=== PATIENT | female | born 1985 | race Two or more races ===

== ENCOUNTER 2017-04-24 15:05 | Inpatient (IN) | payer OTHER ==
--- NOTE | 2017-04-24 16:42 | HP ---
Past Medical History - Admission Chief Complaint: Rupture of membrane History of Present Illness: 32 yo , @ 37.6 weeks gestation, EDC 05/09/17, presents c/o spontaneous rupture of membrane. Upon admission there was evidence of gross pooling. History Source: Patient Limitations to Obtaining History: No Limitations - Past Medical History ...: 2 ...Para: 0 - Past Surgical History Past Surgical History: Yes: None Hx Myomectomy: No Hx Transabdominal Cerclage: No - Alcohol/Substance Use Hx Alcohol Use: No History of Substance Use: reports: None - Social History Usual Living Arrangement: Yes: With Spouse History of Recent Travel: No Home Medications - Allergies Allergies/Adverse Reactions: Allergies Allergy/AdvReac Type Severity Reaction Status Date / Time No Known Allergies Allergy Verified 04/24/17 16:50 - Home Medications Home Medications: Ambulatory Orders Ascorbate Calcium [Vitamin C] 500 mg PO DAILY 04/24/17 Cholecalciferol (Vitamin D3) [Vitamin D -] 1 tab PO DAILY 04/24/17 Ferrous Sulfate 325 mg PO DAILY 04/24/17 Magnesium Phosphate 1 tab PO DAILY 04/24/17 Vit/Iron Fum/Folic AC [ Tablet] 1 tab PO DAILY 04/24/17 Family Disease History - Family Disease History Family History: Unremarkable Review of Systems - Review of Systems Constitutional: reports: No Symptoms Eyes: reports: No Symptoms HENT: reports: No Symptoms Neck: reports: No Symptoms Cardiovascular: reports: No Symptoms Respiratory: reports: No Symptoms Gastrointestinal: reports: No Symptoms Genitourinary: reports: Other (Rupture of membrane) Physical Exam - Maternity Constitutional: Yes: Well Nourished Eyes: Yes: Conjunctiva Clear HENT: Yes: Atraumatic Neck: Yes: Supple Cardiovascular: Yes: Regular Rate and Rhythm Lungs: Clear to auscultation - Abdominal Exam/OB Number of Fetuses: Single Presentation: Vertex Contractions: Yes Intensity: Mild - Vaginal Exam/OB Vaginal Bleediing: No Speculum Exam: No Dilatation (cm): 4 Effacement (%): 80 Amniotic Membrane Status: Ruptured Nitrazine Test: Positive Amniotic Fluid: Yes: Clear Presentation: Vertex/Position Station: -3 - Physical Exam Musculoskeletal: Yes: WNL Extremities: Yes: WNL Integumentary: Yes: WNL ...Motor Strength: WNL Psychiatric: Yes: Alert, Oriented Problem List - Problems (1) Spontaneous rupture of amniotic membranes Code(s): TCV7469 - (2) 37 weeks gestation of Code(s): Z3A.37 - 37 WEEKS GESTATION OF Assessment/Plan IUP @ 37.6 weeks gestation Spontaneous rupture of membrane Admit to L&D Pitocin augmentation Analgesia as needed
[2017-04-24] MEDS ORDERED: OXYTOCIN 15 UNITS/ LR 250 ML 15 UNIT/250 ML INFUS.BAG IVPB SCH (16:45)
[2017-04-24] MEDS ORDERED: OXYTOCIN 30 UNITS in 0.9% NS 30 UNIT/500 ML INFUS.BAG IVPB SCH (17:00)
[2017-04-24 17:13] VITALS: BMI 28.1
[2017-04-24] MEDS ORDERED: OXYTOCIN 30 UNITS in 0.9% NS 30 UNIT/500 ML INFUS.BAG IVPB ONE (18:39)
[2017-04-24 18:52] LABS: BASO % 0.3 % (0-2.0); EOS % 0.5 % (0-4.5); HEMATOCRIT 37.9 % (32.4-45.2); HEMOGLOBIN 12.7 GM/dL (10.7-15.3); LYMPH % 10.7 % (8-40); MCHC 33.5 g/dl (32.0-36.0); MEAN CELL VOLUME 89.7 fl (80-96); MEAN PLT VOLUME 10.9 fl (7.5-11.1); MONO % 6.4 % (3.8-10.2); NEUT % 82.1 % (42.8-82.8); PLATELET COUNT 104 K/MM3 (134-434); RBC 4.23 M/mm3 (3.60-5.2); RDW 14.8 % (11.6-15.6); WHITE BLOOD COUNT 7.9 K/mm3 (4.0-10.0)
[2017-04-24 19:10] LABS: INR 0.88 (0.82-1.09)
[2017-04-24 19:12] LABS: ACTIVATED PTT 27.5 SECONDS (26.9-34.4)
[2017-04-24] MEDS ORDERED: DEXTROSE 5%-LACTATED RINGERS 1,000 ML IV SCH (19:15)
[2017-04-24 19:49] LABS: ANION GAP 9 (8-16); BLOOD UREA NITROGEN 10 mg/dL (7-18); CHLORIDE 107 mmol/L (98-107); CO2 24 mmol/L (21-32); CREATININE 0.5 mg/dL (0.55-1.02); GLUCOSE,RANDOM 76 mg/dL (74-106); POTASSIUM 3.8 mmol/L (3.5-5.1); SODIUM 140 mmol/L (136-145)
[2017-04-24] MEDS ORDERED: FENTANYL/BUPIVACAINE/NS/PF - PCEA - 50 ML DISP.SYRIN EP ONE (20:33)
[2017-04-24] MEDS ORDERED: NALOXONE HCL 0.4 MG/ML VIAL IVPUSH PRN (20:45)
[2017-04-24] MEDS ORDERED: FENTANYL/BUPIVACAINE/NS/PF - PCEA - 50 ML DISP.SYRIN EP SCH (21:00)
[2017-04-24] MEDS ORDERED: BUTORPHANOL TARTRATE 1 MG/ML VIAL ONE ×2 (21:42)
[2017-04-24] MEDS ORDERED: PROMETHAZINE HCL 25 MG/1 ML VIAL ONE (21:43)
[2017-04-24] MEDS ORDERED: OXYTOCIN 20 UNITS in 0.9% NS 20 UNIT/1,000 ML INFUS.BAG IV ONE (23:14)
[2017-04-25] MEDS ORDERED: LIDOCAINE HCL 1% PRESERVATIVE FREE - 30ML VIAL ONE (00:39)
[2017-04-25] MEDS: OXYTOCIN 20 UNITS in 0.9% NS 20 UNIT/1,000 ML INFUS.BAG IV SCH (01:15)
[2017-04-25] MEDS ORDERED: METHYLERGONOVINE MALEATE 0.2 MG/1 ML AMP IM PRN (01:41)
[2017-04-25] MEDS ORDERED: WITCH HAZEL 50% (TUCKS) 40 PAD/JAR PAD TP PRN (01:41)
[2017-04-25] MEDS ORDERED: BENZOCAINE 20% 57 GM BOTTLE TP PRN (01:41)
[2017-04-25] MEDS ORDERED: ACETAMINOPHEN 325 MG TABLET (FP) PO PRN (01:41)
[2017-04-25] MEDS ORDERED: BISACODYL 10 MG SUPP.RECT RC PRN (01:41)
[2017-04-25] MEDS ORDERED: BENZOCAINE 28 GM HEMORRHOIDAL OINTMENT TP PRN (01:41)
--- NOTE | 2017-04-25 01:46 | PN ---
Delivery - Delivery Vaginal Delivery: Spontaneous Type of Anesthesia: Local Episiotomy/Laceration: Midline EBL (cc): 300 Delivery, Single - Feeding Plan Initial Plan: Exclusive throughout hospitalization Remarks - Remarks Remarks: Normal spontaneous vaginal delivery of a live infant boy over midline episiotomy. Nose / Oropharynx suctioned @ perineum. Nuchal cord x 1 clamped and cut. Placenta expelled spontaneously intact. Midline episiotomy repaired with 2.0 Chromic.
[2017-04-25] MEDS ORDERED: BUTORPHANOL TARTRATE 1 MG/ML VIAL IVPUSH ONE (01:50)
[2017-04-25] MEDS ORDERED: PROMETHAZINE HCL 25 MG/1 ML VIAL IVPUSH ONE (01:50)
[2017-04-25] MEDS ORDERED: OXYTOCIN 20 UNITS in 0.9% NS 20 UNIT/1,000 ML INFUS.BAG IV ONE (06:13)
[2017-04-25] MEDS: FERROUS SO4 325 MG TABLET (FP) PO SCH ×5 (12:00→17:05)
[2017-04-25] MEDS: PRENATAL VITAMINS W/ FOLIC ACID TABLET (FP) PO SCH (12:24)
[2017-04-25 13:38] LABS: RPR NONREACTIVE (NONREACTIVE)
[2017-04-25] MEDS: ACETAMINOPHEN/CAFFEINE/BUTALBITAL 1 TAB PO PRN (13:58)
--- NOTE | 2017-04-25 15:47 | PN ---
Progress Note (short form) - Note Progress Note: Anesthesiologist note S/p Vaginal delivery. Epidural placement attempt with wet tap and +CSF leak from epidural catheter. Pat C/o headache that started in the afternoon. Headache in front and temples. Pain score 3/10. No complaint of neck stiffness , nausea or visual changes. Ambulating.Tolerating PO. Sitting in the bed, present in the room. AAOX3. NAD.Reports pain aleviation in supine position. VSS. Neurologically grossly intact. No neck pain or stiffness on exam. A/P: Possible PDPH. The pathophysiology was explained to the pat and her . Treatment options explained, Blood patch vs conservative therapy. Risks and benefits discussed. Pat thinks that the pain is tolerable now, will rather try conservative therapy with fluid and analgetic. will let us know if worsening pain or new symptoms. Will follow up.
[2017-04-25] MEDS ORDERED: LACTATED RINGERS SOLUTION 1000 ML INFUS.BAG IV ONE (15:55)
[2017-04-25] MEDS: IBUPROFEN 600 MG TABLET (FP) PO PRN (16:04)
[2017-04-25] MEDS: SENNOSIDES/DOCUSATE COMBO (SENNA PLUS) TABLET (UD) PO PRN (21:17)
[2017-04-26] MEDS ORDERED: LACTATED RINGERS SOLUTION 1000 ML INFUS.BAG IV SCH (02:00)
[2017-04-26] MEDS: IBUPROFEN 600 MG TABLET (FP) PO PRN (06:11)
[2017-04-26] MEDS: FERROUS SO4 325 MG TABLET (FP) PO SCH ×3 (09:04→17:14)
[2017-04-26] MEDS: PRENATAL VITAMINS W/ FOLIC ACID TABLET (FP) PO SCH (09:04)
[2017-04-26 09:13] LABS: BASO % 0.3 % (0-2.0); EOS % 0.6 % (0-4.5); HEMATOCRIT 32.9 % (32.4-45.2); HEMOGLOBIN 10.8 GM/dL (10.7-15.3); LYMPH % 17.4 % (8-40); MCH 29.7 pg (25.7-33.7); MCHC 32.8 g/dl (32.0-36.0); MEAN CELL VOLUME 90.5 fl (80-96); MEAN PLT VOLUME 10.4 fl (7.5-11.1); MONO % 7.4 % (3.8-10.2); NEUT % 74.3 % (42.8-82.8); PLATELET COUNT 114 K/MM3 (134-434); RBC 3.64 M/mm3 (3.60-5.2); RDW 15.1 % (11.6-15.6)
[2017-04-26] MEDS: ACETAMINOPHEN/CAFFEINE/BUTALBITAL 1 TAB PO PRN ×2 (12:51→20:44)
--- NOTE | 2017-04-26 15:20 | PN ---
Progress Note (short form) - Note Progress Note: Anesthesia follow up Called to evaluate patient with ASTUDILLO, s/p attempted epidural placement for labor, csf leak Headache improving with conservative treatment. Pain reported 2/10 while sitting. encouraged to continue conservative management if pain tolerable, epidural blood patch explained and offered. Patient chooses to wait until tomorrow and be reevaluated. Will follow up tomorrow and will be available if needed before then.
[2017-04-26] MEDS: SENNOSIDES/DOCUSATE COMBO (SENNA PLUS) TABLET (UD) PO PRN (20:44)
--- NOTE | 2017-04-27 07:12 | PN ---
Post Progress Note - Subjective Subjective: 32 yo Para 1 status post vaginal delivery, seen and evaluated. She's been experiencing spinal headache after several epidural attempts. She denies any headache, blurry vision nor epigastric pain. Post Day: 2 Type of Delivery: Vital Signs: Vital Signs Temperature 98.8 F 04/26/17 21:37 Pulse Rate 76 04/26/17 21:37 Respiratory Rate 20 04/26/17 21:37 Blood Pressure 125/70 04/26/17 21:37 O2 Sat by Pulse Oximetry (%) 100 04/25/17 03:00 Breast Exam: Yes: Soft Uterus: Yes: Fundus Firm Abdomen/GI: Yes: Abdomen soft, Tolerating PO Lochia: Yes: Rubra Lochia, amount: Moderate Extremities: Yes: Calves non-tender Perineum: Yes: Episiotomy (Healing) Activity: Ambulating - Labs Labs: CBC WBC 10.0 K/mm3 (4.0-10.0) 04/26/17 09:00 RBC 3.64 M/mm3 (3.60-5.2) 04/26/17 09:00 Hgb 10.8 GM/dL (10.7-15.3) D 04/26/17 09:00 Hct 32.9 % (32.4-45.2) 04/26/17 09:00 MCV 90.5 fl (80-96) 04/26/17 09:00 MCH 29.7 pg (25.7-33.7) 04/26/17 09:00 MCHC 32.8 g/dl (32.0-36.0) 04/26/17 09:00 RDW 15.1 % (11.6-15.6) 04/26/17 09:00 Plt Count 114 K/MM3 (134-434) L 04/26/17 09:00 MPV 10.4 fl (7.5-11.1) 04/26/17 09:00 Neutrophils % 74.3 % (42.8-82.8) 04/26/17 09:00 Lymphocytes % 17.4 % (8-40) D 04/26/17 09:00 Monocytes % 7.4 % (3.8-10.2) 04/26/17 09:00 Eosinophils % 0.6 % (0-4.5) 04/26/17 09:00 Basophils % 0.3 % (0-2.0) 04/26/17 09:00 Problem List - Problems (1) Spontaneous rupture of amniotic membranes Code(s): THU9956 - (2) 37 weeks gestation of Code(s): Z3A.37 - 37 WEEKS GESTATION OF (3) Status post normal vaginal delivery Code(s): CWF4958 - Assessment/Plan Status post vaginal delivery Spinal headache Discussion on blood patch Continue observation after blood patch Consider D/C Home in am
[2017-04-27] MEDS: FERROUS SO4 325 MG TABLET (FP) PO SCH ×3 (08:20→17:08)
[2017-04-27] MEDS: ACETAMINOPHEN/CAFFEINE/BUTALBITAL 1 TAB PO PRN (08:24)
[2017-04-27] MEDS: OXYTOCIN 20 UNITS in 0.9% NS 20 UNIT/1,000 ML INFUS.BAG IV SCH (09:54)
[2017-04-27] MEDS: PRENATAL VITAMINS W/ FOLIC ACID TABLET (FP) PO SCH (10:00)
--- NOTE | 2017-04-27 14:26 | PN ---
Progress Note (short form) - Note Progress Note: S/P Post dural puncture headache.Patient c/o pain score of 7/10 today and has moe getting worst inspite of being on conservative medical management.So did epidural blood patch under sterile conditions at L2-L3 and 25ml of patient,s own blood drawn from left hand injected through the epidural needle.Patient felt immediate pain relief.Advise bed rest for 1hr.
[2017-04-28] MEDS: IBUPROFEN 600 MG TABLET (FP) PO PRN ×2 (05:07→09:29)
[2017-04-28] MEDS: FERROUS SO4 325 MG TABLET (FP) PO SCH ×2 (08:01→11:49)
[2017-04-28 08:38] VITALS: BP 127/69; PULSE 61; TEMP 98.1
--- NOTE | 2017-04-28 09:03 | DS ---
Physical Exam-[facility] Vital Signs: Vital Signs Temperature 98.1 F 04/28/17 08:37 Pulse Rate 61 04/28/17 08:37 Respiratory Rate 20 04/28/17 08:37 Blood Pressure 127/69 04/28/17 08:37 O2 Sat by Pulse Oximetry (%) 100 04/25/17 03:00 Constitutional: Yes: Well Nourished Eyes: Yes: Conjunctiva Clear HENT: Yes: Atraumatic Neck: Yes: Supple, Trachea Midline Cardiovascular: Yes: Regular Rate and Rhythm Respiratory: Yes: Regular Gastrointestinal: Yes: Normal Bowel Sounds Vaginal Exam: Yes: Normal Cervix: Yes: Normal Uterus: Yes: Firm ....Post : Yes: Uterus firm, Moderate lochia serosa Breast(s): Yes: WNL Musculoskeletal: Yes: WNL Extremities: Yes: WNL Neurological: Yes: Alert, Oriented ...Motor Strength: WNL Psychiatric: Yes: Alert, Oriented Labs: CBC, BMP 04/26/17 09:00 04/24/17 17:00 Delivery - Delivery Vaginal Delivery: Spontaneous Type of Anesthesia: Local Episiotomy/Laceration: Midline EBL (cc): 300 Delivery, Single - Stages of Labor Date 1st Stage Initiatied: 04/24/17 Time 1st Stage Initiated: 14:30 Date 2nd Stage Initiated: 04/24/17 Time 2nd Stage Initiated: 21:50 Date of Delivery: 04/25/17 Time of Delivery: 01:11 Time Placenta Delivered: 01:16 - Condition of Job Analyst/Business Affairs Manager Present: No Gender: Male Weight: 5 lb 15 oz Position: Left, OA Total Hours ROM (Hrs/Mins): 10 HOURS/ 41 MINUTES - 1 Minute Total Score: 9 5 Minutes Total Score: 9 - Feeding Plan Initial Plan: Exclusive throughout hospitalization Discharge Summary Reason For Visit: LABOR ADMISSION Current Active Problems 37 weeks gestation of (Acute) Spontaneous rupture of amniotic membranes (Acute) Status post normal vaginal delivery (Acute) Procedures: Principal: Normal spontaneous vaginal delivery Hospital Course: After delivery patient develop spinal headache. Anesthesiologist consulted and a blood patch was placed. Condition: Good - Instructions Diet, Activity, Other Instructions: return to clinic in 4-[address] [facility] for appointment. [phone] Disposition: HOME - Home Medications Comprehensive Discharge Medication List: Ambulatory Orders Ascorbate Calcium [Vitamin C] 500 mg PO DAILY 04/24/17 Cholecalciferol (Vitamin D3) [Vitamin D -] 1 tab PO DAILY 04/24/17 Ferrous Sulfate 325 mg PO DAILY 04/24/17 Magnesium Phosphate 1 tab PO DAILY 04/24/17 Vit/Iron Fum/Folic AC [ Tablet] 1 tab PO DAILY 04/24/17
[2017-04-28] MEDS: PRENATAL VITAMINS W/ FOLIC ACID TABLET (FP) PO SCH (09:29)
== END 2017-04-28 13:10 | disposition home or self-care (01) | DRG 560 ==
LOC: JLDR 15:05 → J3W 04-25 04:26
PROVIDERS: ADMIT Obstetrics & Gynecology; ATTEND Obstetrics & Gynecology
PROC: 10E0XZZ Delivery of Products of Conception, External Approach (ICD-10-PCS; principal; 2017-04-25)
PROC: 0W8NXZZ Division of Female Perineum, External Approach (ICD-10-PCS; 2017-04-25)
PROC: 3E0R3GC Introduction of Other Therapeutic Substance into Spinal Canal, Percutaneous Approach (ICD-10-PCS; 2017-04-27)
DX: O89.4 Spinal and epidural anesthesia-induced headache during the puerperium (principal); Z3A.37 37 weeks gestation of pregnancy; Z37.0 Single live birth
CPT/HCPCS: 36415; 59409; 80048; 85025; 85610; 85730; 86593; 86850; 86900; 86901; 87389

== ENCOUNTER 2020-04-19 21:56 | Inpatient (IN) | payer OTHER ==
[2020-04-19] MEDS ORDERED: BUTORPHANOL TARTRATE 1 MG/ML VIAL IVPB ONE (22:57)
[2020-04-19] MEDS ORDERED: PROMETHAZINE HCL 25 MG/1 ML VIAL IVPUSH ONE (22:57)
[2020-04-19] MEDS ORDERED: ELECTROLYTE-148 SOLN 1,000 ML IV SCH (23:00)
[2020-04-19] MEDS ORDERED: OXYTOCIN 20 UNITS in 0.9% NS 20 UNIT/1,000 ML INFUS.BAG IV ONE (23:45)
[2020-04-19] MEDS ORDERED: LIDOCAINE HCL 1% PRESERVATIVE FREE - 30ML VIAL ONE (23:45)
[2020-04-19 23:52] LABS: BASO % 0.6 % (0-2.0); EOS % 0.5 % (0-4.5); HEMATOCRIT 39.2 % (32.4-45.2); HEMOGLOBIN 13.3 GM/dL (10.7-15.3); LYMPH % 18.7 % (8-40); MCH 30.5 pg (25.7-33.7); MCHC 33.9 g/dl (32.0-36.0); MEAN CELL VOLUME 90.1 fl (80-96); MONO % 7.6 % (3.8-10.2); NEUT % 72.6 % (42.8-82.8); RBC 4.35 M/mm3 (3.60-5.2); RDW 14.9 % (11.6-15.6); WHITE BLOOD COUNT 11.1 K/mm3 (4.0-10.0)
[2020-04-20 00:02] LABS: INR 0.9 (0.83-1.09); PROTHROMBIN TIME (PATIENT) 10.9 SEC (9.7-13.0)
[2020-04-20 00:04] LABS: ACTIVATED PTT 28.2 SECONDS (25.2-36.5)
[2020-04-20 00:06] LABS: POTASSIUM 3.9 mmol/L (3.5-5.1)
[2020-04-20 00:07] LABS: CALCIUM 9.2 mg/dL (8.5-10.1)
[2020-04-20 00:08] LABS: BLOOD UREA NITROGEN 9.6 mg/dL (7-18)
[2020-04-20 00:11] LABS: CREATININE 0.6 mg/dL (0.55-1.3)
[2020-04-20] MEDS ORDERED: WITCH HAZEL 50% (TUCKS) 40 PAD/JAR PAD TP PRN (01:03)
[2020-04-20] MEDS ORDERED: METHYLERGONOVINE MALEATE 0.2 MG/1 ML AMP IM PRN (01:03)
[2020-04-20] MEDS ORDERED: BENZOCAINE 28 GM HEMORRHOIDAL OINTMENT TP PRN (01:03)
[2020-04-20] MEDS ORDERED: BISACODYL 10 MG SUPP.RECT RC PRN (01:03)
[2020-04-20] MEDS ORDERED: BENZOCAINE 20% 57 GM BOTTLE TP PRN (01:03)
[2020-04-20 01:06] LABS: CORD BASE EXCESS -5.9 mmol/L (0-2); CORD HCO3 19.4 mmHg (20-29); CORD PCO2 37.8 mmHg (30-78); CORD pH 7.328 (7.14-7.44)
[2020-04-20] MEDS ORDERED: OXYTOCIN 20 UNITS in 0.9% NS 20 UNIT/1,000 ML INFUS.BAG IV SCH (01:15)
[2020-04-20 01:41] LABS: PLATELET ESTIMATE NORMAL
[2020-04-20 02:28] VITALS: BMI 28.1
[2020-04-20] MEDS ORDERED: OXYTOCIN 20 UNITS in 0.9% NS 20 UNIT/1,000 ML INFUS.BAG IV ONE (02:31)
[2020-04-20 04:01] LABS: MEAN PLT VOLUME 11.2 fl (7.5-11.1); PLATELET COUNT 115 K/MM3 (134-434)
[2020-04-20] MEDS: FERROUS SO4 325 MG TABLET (FP) PO SCH ×2 (08:28→17:12)
[2020-04-20] MEDS: ACETAMINOPHEN 325 MG TABLET (FP) PO PRN ×2 (08:33→17:12)
[2020-04-20] MEDS: IBUPROFEN 600 MG TABLET (FP) PO PRN ×2 (08:36→17:13)
[2020-04-20] MEDS: PRENATAL VITAMINS W/ FOLIC ACID TABLET (FP) PO SCH (09:59)
[2020-04-20 21:09] VITALS: BP 107/53; PULSE 69; TEMP 98.1
[2020-04-21] MEDS: FERROUS SO4 325 MG TABLET (FP) PO SCH (09:00)
[2020-04-21] MEDS: ACETAMINOPHEN 325 MG TABLET (FP) PO PRN (09:11)
[2020-04-21] MEDS: PRENATAL VITAMINS W/ FOLIC ACID TABLET (FP) PO SCH (09:11)
[2020-04-21] MEDS: IBUPROFEN 600 MG TABLET (FP) PO PRN (09:12)
[2020-04-21 09:29] LABS: BASO % 0.4 % (0-2.0); EOS % 0.7 % (0-4.5); LYMPH % 19.6 % (8-40); MCHC 34.1 g/dl (32.0-36.0); MEAN CELL VOLUME 90.7 fl (80-96); MEAN PLT VOLUME 10.3 fl (7.5-11.1); MONO % 5.3 % (3.8-10.2); PLATELET COUNT 105 K/MM3 (134-434); RBC 3.86 M/mm3 (3.60-5.2); RDW 15.1 % (11.6-15.6); WHITE BLOOD COUNT 9.7 K/mm3 (4.0-10.0)
[2020-04-21] MEDS ORDERED: SENNOSIDES/DOCUSATE COMBO (SENNA PLUS) TABLET (UD) PO PRN (22:00)
== END 2020-04-21 12:30 | disposition home or self-care (01) | DRG 560 ==
LOC: JDEL 21:56 → JLDR 22:25 → J3W 04-20 03:21
PROVIDERS: ADMIT Obstetrics & Gynecology; ATTEND Obstetrics & Gynecology
PROC: 10E0XZZ Delivery of Products of Conception, External Approach (ICD-10-PCS; principal; 2020-04-20)
PROC: 0W8NXZZ Division of Female Perineum, External Approach (ICD-10-PCS; 2020-04-20)
DX: O24.415 Gestational diabetes mellitus in pregnancy, controlled by oral hypoglycemic drugs (principal); Z3A.38 38 weeks gestation of pregnancy; Z37.0 Single live birth
CPT/HCPCS: 36415; 36600; 59409; 80048; 82803; 82962; 85025; 85610; 85730; 86780; 86850; 86900; 86901; C9803; U0003